=== PATIENT | female | born 1980 | race African-American/Black ===

== ENCOUNTER 2024-06-23 17:22 | Emergency (ER) | payer OTHER ==
[2024-06-23 17:36] VITALS: BP 125/68; PULSE 72; RESP 18; TEMP 97.5; BMI 25.7
[2024-06-23] MEDS: IBUPROFEN 400 MG TABLET (FP) PO ONE (18:35)
[2024-06-23] MEDS ORDERED: IBUPROFEN 400 MG TABLET (FP) PO ONE (18:38)
[2024-06-23 19:06] LABS: ABSOLUTE IMMATURE GRANULOCYTES 0.01 x10^3/uL (0.0-0.031); BASOPHILS # 0.02 x10^3/uL (0.01-0.08); EOSINOPHIL % 1.4 % (0.7-5.8); EOSINOPHILS # 0.06 x10^3/uL (0.04-0.36); HEMATOCRIT 26.2 % (34.1-44.9); HEMOGLOBIN 8.5 g/dL (11.2-15.7); MCHC 32.4 g/dl (32.2-35.5); MEAN CELL VOLUME 62.4 fl (79.4-94.8); MONOCYTE # 0.41 x10^3/uL (0.24-0.86); MONOCYTE % 9.2 % (4.7-12.5); PLATELET COUNT 237 x10^3/uL (182-369)
[2024-06-23 20:13] LABS: POTASSIUM 4.2 mmol/L (3.5-5.1)
[2024-06-23 20:15] LABS: ALBUMIN 3.4 g/dl (3.4-5.0); BLOOD UREA NITROGEN 13.6 mg/dL (7-18); MAGNESIUM 1.9 mg/dL (1.8-2.4)
[2024-06-23 20:30] LABS: CREATININE 0.9 mg/dL (0.55-1.3); TOT PROT 6.6 g/dl (6.4-8.2)
[2024-06-23 20:44] LABS: INR 1.2 (0.83-1.09); PROTHROMBIN TIME (PATIENT) 13.1 SEC (9.7-13.0)
[2024-06-23 20:46] LABS: ACTIVATED PTT 23.8 SECONDS (25.2-36.5)
[2024-06-23] MEDS ORDERED: ACETAMINOPHEN INJECTION 100 ML ONE (20:47)
[2024-06-23] MEDS: ACETAMINOPHEN 1000 MG/100 ML BAG IVPB ONE (20:52)
== END 2024-06-23 23:13 | disposition home or self-care (01) ==
LOC: JER 17:22
PROC: 3E033NZ Introduction of Analgesics, Hypnotics, Sedatives into Peripheral Vein, Percutaneous Approach (ICD-10-PCS; principal; 2024-06-23)
DX: R07.89 Other chest pain (principal); G89.29 Other chronic pain; R06.02 Shortness of breath
CPT/HCPCS: 36415; 71046-TC-FY; 80053; 83735; 84484; 84703; 85025; 85379; 85610; 85730; 93005; 93010; 99285-25; J0131